=== PATIENT | male | born 1975 | race Caucasian/White ===

== ENCOUNTER 2017-10-26 09:00 | Day surgery (SDC) | payer SELFPAY ==
[~2017-10-26 09:00] MED LIST: Lactated Ringers 1,000 ML IV SCH; Midazolam 1 MG/ML 2 ML SDV ONE; Propofol 200 MG/20 ML SDV ONE; Sodium Chloride 0.9% 5 ML Syringe FLUSH PRN; ceFAZolin 1 GM Vial ONE; fentaNYL 100 MCG/2 ML SDV ONE
[2017-10-26] MEDS ORDERED: Bupivacaine 0.5% 30 ML SDV ONE (09:10)
[2017-10-26] MEDS ORDERED: Midazolam 1 MG/ML 2 ML SDV ONE (09:15)
[2017-10-26] MEDS ORDERED: Propofol 200 MG/20 ML SDV ONE (09:47)
[2017-10-26] MEDS ORDERED: Propofol 200 MG/20 ML SDV IV ONE (10:24)
[2017-10-26] MEDS ORDERED: ceFAZolin 1 GM Vial IV ONE (10:24)
[2017-10-26] MEDS ORDERED: Midazolam 1 MG/ML 2 ML SDV IV ONE (10:24)
[2017-10-26] MEDS ORDERED: Bupivacaine 0.5% 30 ML SDV INJECT ONE (10:25)
--- NOTE | 2017-10-26 11:28 | PCM.OPNOTE ---
- General Post-Op/Procedure Note Date of Surgery/Procedure: 10/26/17 Operative Procedure(s): Left carpal tunnel repair Findings: Severe compression of the median nerve due to a tight transverse carpal ligament was noted at the time of surgery. Pre Op Diagnosis: Left carpal tunnel syndrome Post-Op Diagnosis: Same Anesthesia Technique: Regional Block Primary Surgeon: Krista Izquierdo Complications: None Condition: Good Free Text/Narrative:: INFORMED CONSENT: Patient is here today for elective left carpal tunnel decompression. All aspects of this procedure have been discussed with the patient. All possible complications including, pain, lack of the operation to relieve the symptoms, numbness, tendon injury, nerve injury, bleeding, infection and other unknown complications were discussed. Anesthetic complications were handled by anesthesia department. The patient understands fully well. Patient did not have any further questions for me at the end of my interview. The patient wishes for me to proceed. PROCEDURE: Patient was kept in the supine position and the satisfactory [place] block anesthesia was administered. The left arm was thoroughly prepped and draped in the usual fashion. The tourniquet was placed to the left upper arm and a vertical incision was made in the palm directly distal to the distal wrist crease. The skin incision was deepened through the subcutaneous tissue, the palmar aponeurosis was incised and then we came down upon the transverse carpal ligament, which was opened along the line of the skin incision. Extreme care was taken to protect the median nerve below. Careful neurolysis was performed meticulously. Approximately 2 cc of Marcaine 0.5% was instilled into the wound and skin was closed using mattress sutures with 3.0 Nylon. The tourniquet was released. A sterile pressure dressing was applied. The patient tolerated the procedure well and was transferred to the recovery room in excellent condition.
[2017-10-26 14:29] VITALS: BP 148/89
== END 2017-10-26 13:30 | disposition home or self-care (01) ==
LOC: KA.SDS 09:00
PROVIDERS: ATTEND Family Medicine
DX: G56.03 Carpal tunnel syndrome, bilateral upper limbs (principal); Z88.0 Allergy status to penicillin
CPT/HCPCS: 64721; J0690; J2250; J2704; J3490; J7120; 01810